=== PATIENT | male | born 1950 | race Caucasian/White ===

== ENCOUNTER 2019-01-11 14:57 | Emergency (ER) | payer MEDICARE, MEDICAID ==
--- NOTE | 2019-01-11 15:20 | RADIOLOGY REPORT (SQ) ---
EXAM DESCRIPTION: CHEST SINGLE VIEW COMPLETED DATE/TIME: 01/11/2019 3:11 pm REASON FOR STUDY: chest pain COMPARISON: None. EXAM PARAMETERS: NUMBER OF VIEWS: One view. TECHNIQUE: Single frontal radiographic view of the chest acquired. RADIATION DOSE: NA LIMITATIONS: None. FINDINGS: LUNGS AND PLEURA: No acute infiltrates or effusions. MEDIASTINUM AND HILAR STRUCTURES: No masses. Contour normal. HEART AND VASCULAR STRUCTURES: Borderline cardiomegaly. BONES: Dorsal spondylosis. Degenerative changes at the AC joints. HARDWARE: None in the chest. OTHER: No other significant finding. IMPRESSION: Borderline cardiomegaly. TECHNICAL DOCUMENTATION: JOB ID: [id number] [employer]- All Rights Reserved Reading location - IP/workstation name: [email or web address]
[2019-01-11 15:22] LABS: ABSOLUTE EOSINOPHILS # (AUTO) 0.1 10^3/uL (0.0-0.6); ABSOLUTE LYMPHOCYTES (AUTO) 1.9 10^3/uL (0.5-4.7); ABSOLUTE MONOCYTES (AUTO) 0.3 10^3/uL (0.1-1.4); ABSOLUTE NEUT (AUTO) 2.9 10^3/uL (1.7-8.2); BASOPHILS % (AUTO) 0.8 % (0-2); EOSINOPHILS % (AUTO) 1.4 % (0-6); HEMATOCRIT 39.3 % (37.9-51.0); HEMOGLOBIN 13.5 g/dL (13.5-17.0); LYMPHOCYTES % (AUTO) 36.2 % (13-45); MEAN CORPUSCULAR HEMOGLOBIN 33.1 pg (27.0-33.4); MEAN CORPUSCULAR HGB CONC 34.3 g/dL (32.0-36.0); MEAN CORPUSCULAR VOLUME 96 fl (80-97); MONOCYTES % (AUTO) 6.3 % (3-13); PLATELET COUNT 204 10^3/uL (150-450); RED BLOOD COUNT 4.07 10^6/uL (4.35-5.55); RED CELL DISTRIBUTION WIDTH 12.8 % (11.5-14.0); SEGMENTED NEUTROPHILS % (AUTO) 55.3 % (42-78); TOTAL CELLS COUNTED % (AUTO) 100 %; WHITE BLOOD COUNT 5.3 10^3/uL (4.0-10.5)
--- NOTE | 2019-01-11 15:32 | ER Document Report ---
ED Medical Screen (RME) - General Chief Complaint: Chest Pain Stated Complaint: CHEST PAIN Time Seen by Provider: 01/11/19 15:27 Primary Care Provider: PEDRO PABLO CHAHAL NP [Primary Care Provider] - Follow up as needed Information source: Patient Notes: Patient reports that he was sitting at home and developed sudden onset of left- sided chest pain that was sharp in nature. Patient states symptoms started around 130 resolved upon his arrival here. Patient does report a history of hypertension. Patient presently denies any pain. Patient denies any nausea vomiting or shortness of breath. I have greeted and performed a rapid initial assessment of this patient. A comprehensive ED assessment and evaluation of the patient, analysis of test results and completion of the medical decision making process will be conducted by additional ED providers. TRAVEL OUTSIDE OF THE [place] IN LAST 30 DAYS: No - Related Data Allergies/Adverse Reactions: No Known Allergies Allergy (Unverified 01/31/14 14:42) Past Medical History - Past Medical History Cardiac Medical History: Reports: Hx Heart Attack - ?silent, Hx Hypertension - on meds Denies: Hx Coronary Artery Disease Pulmonary Medical History: Denies: Hx Asthma, Hx Bronchitis, Hx COPD, Hx Pneumonia Neurological Medical History: Denies: Hx Cerebrovascular Accident, Hx Seizures Musculoskeltal Medical History: Reports Hx Arthritis Psychiatric Medical History: Reports: Hx Depression - Immunizations Hx Diphtheria, Pertussis, Tetanus Vaccination: No Physical Exam - Vital signs Vitals: Resp BP Pulse Ox 17 166/81 H 97 01/11/19 15:04 01/11/19 15:04 01/11/19 15:04 - Cardiovascular Rhythm: Regular Heart sounds: S1 appreciated, S2 appreciated Course - Vital Signs Vital signs: Temp Pulse Resp BP Pulse Ox 17 166/81 H 98 01/11/19 15:04 01/11/19 15:04 01/11/19 15:12 - Laboratory Result Diagrams: 01/11/19 15:01 01/11/19 15:01 Laboratory results interpreted by me: 01/11/19 15:01 RBC 4.07 L Doctor's Discharge - Discharge Referrals: PEDRO PABLO CHAHAL NP [Primary Care Provider] - Follow up as needed
[2019-01-11 15:45] LABS: ALBUMIN 4.6 g/dL (3.5-5.0); ALKALINE PHOSPHATASE 59 U/L (38-126); ANION GAP 10 (5-19); ASPARTATE AMINO TRANSFERASE 40 U/L (17-59); BILIRUBIN,DIRECT 0.1 mg/dL (0.0-0.4); BILIRUBIN,TOTAL 1.2 mg/dL (0.2-1.3); BLOOD UREA NITROGEN 16 mg/dL (7-20); CARBON DIOXIDE 27 mmol/L (22-30); CHLORIDE 104 mmol/L (98-107); CREATINE KINASE 53 U/L (55-170); GLUCOSE 109 mg/dL (75-110); POTASSIUM 4.3 mmol/L (3.6-5.0); TOTAL PROTEIN 7.5 g/dL (6.3-8.2)
[2019-01-11 15:55] LABS: CREATINE KINASE MB 0.57 ng/mL (<4.55)
[2019-01-11 15:56] LABS: TROPONIN I < 0.012 ng/mL
--- NOTE | 2019-01-11 16:16 | ER Document Report ---
ED Cardiac - General Chief Complaint: Chest Pain Stated Complaint: CHEST PAIN Time Seen by Provider: 01/11/19 15:27 Primary Care Provider: PEDRO PABLO CHAHAL NP [COMMUNITY BASED STAFF] - Follow up as needed KARLEY HUBBARD MD [ACTIVE STAFF] - 01/13/19 Notes: 68-year-old male with hypertension presents the emergency department with left- sided chest pain since 1:30 PM today. Patient states he was sitting at home and developed a sudden sharp pain. Patient describes it as burning and sharp. Patient states that it was in the epigastric area. Patient is a smoker. Patient denies diaphoresis, denies nausea or vomiting, denies any radiating pain to his jaw or arm. 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 TRAVEL OUTSIDE OF THE [place] IN LAST 30 DAYS: No - Related Data Allergies/Adverse Reactions: No Known Allergies Allergy (Unverified 01/31/14 14:42) Past Medical History - General Information source: Patient - Social History Smoking Status: Unknown if Ever Smoked Family History: Reviewed & Not Pertinent Patient has suicidal ideation: No Patient has homicidal ideation: No - Past Medical History Cardiac Medical History: Reports: Hx Heart Attack - ?silent, Hx Hypertension - o n meds Denies: Hx Coronary Artery Disease Pulmonary Medical History: Denies: Hx Asthma, Hx Bronchitis, Hx COPD, Hx Pneumonia Neurological Medical History: Denies: Hx Cerebrovascular Accident, Hx Seizures Musculoskeletal Medical History: Reports Hx Arthritis Psychiatric Medical History: Reports: Hx Depression - Immunizations Hx Diphtheria, Pertussis, Tetanus Vaccination: No Hx Pneumococcal Vaccination: 02/06/14 Review of Systems - Review of Systems Constitutional: See HPI EENT: No symptoms reported Cardiovascular: See HPI Respiratory: See HPI Gastrointestinal: See HPI Genitourinary: No symptoms reported Male Genitourinary: No symptoms reported Musculoskeletal: No symptoms reported Skin: No symptoms reported Hematologic/Lymphatic: No symptoms reported Neurological/Psychological: See HPI Physical Exam - Vital signs Vitals: Resp BP Pulse Ox 17 166/81 H 97 01/11/19 15:04 01/11/19 15:04 01/11/19 15:04 - Notes Notes: PHYSICAL EXAMINATION: Reviewed vital signs and charting by RN GENERAL: Alert, interacts well. No acute distress. HEAD: Normocephalic, atraumatic. EYES: Pupils equal and round. Extraocular movements intact. ENT: Oral mucosa moist, tongue midline. NECK: Full range of motion. Trachea midline. LUNGS: Clear to auscultation bilaterally, no wheezes, rales, or rhonchi. No respiratory distress. HEART: Regular rate and rhythm. No murmur ABDOMEN: soft, non-tender. No distention. Bowel sounds present EXTREMITIES: Moves all 4 extremities spontaneously. No edema, No cyanosis. PSYCH: Normal affect, normal mood. SKIN: Warm, dry, normal turgor. No rashes or lesions noted. Course - Re-evaluation Re-evalutation: 01/11/19 16:30 Well-appearing in no acute distress. Patient states that the pain is inte rmittent. Patient received nitroglycerin 0.4 mg sublingual x3 and EMS and aspirin 324 mg oral. EKG showed a sinus rhythm with a rate of 56, left axis deviation, QTC 421, no ST segment elevation or ST segment depression seen. Initial troponin negative. Patient heart score is 3 for age and risk factors. Plan is to get a delta troponin and if no interval changes will discuss with patient disposition. 01/11/19 17:[address] Hubbard, stunt person on-call, regarding the patient. I to ld him the initial troponin was negative and we are awaiting a delta troponin. Dr. casey that if the delta troponin is negative that he is okay to discharge with follow-up Sunday morning in his office. 01/11/19 19:46 Patient's troponin came back positive at 0.187. I spoke with Dr. Hubbard who recommended that the patient needs a catheterization and we would not be able to do that until Sunday. He recommended that the patient get transferred. I called [facility] to initiate transfer. 01/11/19 19:[address] Hill, stunt person at [facility], who accepted the patient for transfer. I have initiated a heparin drip. Her recommendation was that if he does become symptomatic to start a nitroglycerin drip. - Vital Signs Vital signs: Temp Pulse Resp BP Pulse Ox 17 166/81 H 98 01/11/19 15:04 01/11/19 15:04 01/11/19 15:12 - Laboratory Result Diagrams: 01/11/19 15:01 01/11/19 15:01 Laboratory results interpreted by me: 01/11/19 01/11/19 15:01 15:01 RBC 4.07 L Creatine Kinase 53 L Discharge - Discharge Clinical Impression: NSTEMI (non-ST elevated myocardial infarction) Chest pain Qualifiers: Chest pain type: unspecified Qualified Code(s): R07.9 - Chest pain, unspecified Condition: Stable Disposition: [facility] [place] Referrals: PEDRO PABLO CHAHAL NP [COMMUNITY BASED STAFF] - Follow up as needed KARLEY HUBBARD MD [ACTIVE STAFF] - 01/13/19
[2019-01-11] MEDS ORDERED: HEPARIN SODIUM,PORCINE/D5W 250 ML IV PRN (19:55)
[2019-01-11] MEDS ORDERED: HEPARIN SOD (PORCINE) 1,000 UNIT/ML 10 ML VIAL IV ONE ×2 (19:55→20:25)
[2019-01-11] MEDS ORDERED: HEPARIN SODIUM,PORCINE/D5W 25,000 UNIT/250 ML RTUINJ IV ONE (20:05)
[2019-01-11] MEDS ORDERED: HEPARIN SODIUM,PORCINE/D5W 25,000 UNIT/250 ML RTUINJ IV PRN (20:25)
[2019-01-11 20:40] LABS: PROTHROMBIN TIME 13.2 SEC (11.4-15.4)
--- NOTE | 2019-01-11 21:37 | EKG REPORT ---
SEVERITY:- ABNORMAL ECG - SINUS RHYTHM LEFT ANTERIOR FASCICULAR BLOCK ANTERIOR Q WAVES, POSSIBLY DUE TO LVH : Confirmed by: Johanna Arteaga 11-Jan-2019 21:36:37
--- NOTE | 2019-01-11 21:37 | EKG REPORT ---
SEVERITY:- ABNORMAL ECG - SINUS RHYTHM LEFT AXIS DEVIATION ANTERIOR INFARCT, AGE INDETERMINATE : Confirmed by: Johanna Arteaga 11-Jan-2019 21:36:57
[2019-01-11 22:25] LABS: APPEARANCE,URINE CLEAR; BILIRUBIN,URINE NEGATIVE (NEGATIVE); COLOR,URINE STRAW; GLUCOSE, URINE NEGATIVE (NEGATIVE); KETONES,URINE TRACE mg/dL (NEGATIVE); LEUKOCYTE ESTERASE,URINE NEGATIVE (NEGATIVE); NITRITE,URINE NEGATIVE (NEGATIVE); PROTEIN,URINE NEGATIVE (NEGATIVE); URINE SPECIFIC GRAVITY 1.009; UROBILINOGEN,URINE NEGATIVE mg/dL (<2.0)
[2019-01-11 22:41] VITALS: BP 163/87
[2019-01-11] MEDS ORDERED: HEPARIN SOD (PORCINE) 1,000 UNIT/ML 10 ML VIAL IV PRN ×2 (22:55→23:25)
== END 2019-01-11 23:15 | disposition short-term general hospital (02) ==
LOC: ER 14:57
DX: I21.4 Non-ST elevation (NSTEMI) myocardial infarction (principal); R07.9 Chest pain, unspecified; R10.13 Epigastric pain; I10 Essential (primary) hypertension; I25.2 Old myocardial infarction
CPT/HCPCS: 93005; 36415; 82553; 82550; 85025; 85610; 85730; 80053; 81001; 84484; 71045; 93010; J1644 ×2; 96365; 96366; 96376; 99285

== ENCOUNTER 2019-12-03 18:52 | Emergency (ER) | payer MEDICARE, MEDICAID ==
--- NOTE | 2019-12-03 20:48 | RADIOLOGY REPORT (SQ) ---
4 VIEWS LEFT KNEE HISTORY: Knee pain. COMPARISON: None. FINDINGS: No acute fracture or dislocation is seen. The joint spaces are preserved. There is a small knee joint effusion. Vascular calcifications are present. IMPRESSION: No acute fracture is seen. Small knee joint effusion, nonspecific.
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
[2019-12-03 22:14] VITALS: BP 194/59
== END 2019-12-03 22:20 | disposition home or self-care (01) ==
LOC: ER 18:52
DX: M25.462 Effusion, left knee (principal); M25.562 Pain in left knee; V18.3XXA Person boarding or alighting a pedal cycle injured in noncollision transport accident, initial encounter; F17.200 Nicotine dependence, unspecified, uncomplicated; I10 Essential (primary) hypertension
CPT/HCPCS: 99283